=== PATIENT | male | born 1995 | race Caucasian/White ===

== ENCOUNTER 2024-08-22 19:45 | Emergency (ER) | payer OTHER, SELFPAY ==
--- NOTE | ~2024-08-22 | XR_ITS ---
HISTORY: felt pop in foot, SWELLING LATERAL FOOT COMPARISON: None TECHNIQUE: 3 views of the left foot were performed FINDINGS: No acute fracture or dislocation is appreciated. No significant degenerative disease is noted. The base of the fifth metatarsal is intact. No calcaneal spur is noted. Trace lateral soft tissue swelling of the midfoot is present. IMPRESSION: Midfoot soft tissue swelling, without acute fracture Reviewed, dictated and finalized at location A.
[2024-08-22 19:52] VITALS: BP 137/87; PULSE 93; RESP 16; TEMP 36.3; O2SAT 99
--- NOTE | 2024-08-22 20:01 | ED_ITS ---
HPI - Extremity Injury (Lower) General Chief Complaint: Extremity Injury, Lower Stated Complaint: Injured Ankle Time Seen by Provider: 08/22/24 20:00 Source: patient, RN notes reviewed and old records reviewed Mode of arrival: ambulatory Limitations: no limitations History of Present Illness HPI Narrative: 29 year old male who presents to [facility] care with complaints of twisting his left foot this evening and felt a pop. He states that he is concerned for possible fracture due to area of swelling noted on the lateral aspect of his foot in area where he felt a pop. Patient has full mobility of his foot and ank le, strong pedal pulse present, is able to walk on his foot. 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 EYES: Denies visual changes, redness, or discharge. ENT: Denies rhinorrhea, congestion, sore throat, or otalgia. CARDIOVASCULAR: Denies chest pain, palpitations, or edema. RESPIRATORY: Denies cough or dyspnea. GASTROINTESTINAL: Denies abdominal pain, nausea, vomiting, or diarrhea. GENITOURINARY: Denies dysuria or hematuria. SKIN: Denies rash or itching. MUSCULOSKELETAL: Denies back pain,positive for swelling and discomfort to the lateral aspect of his left foot where he felt a pop and noted swollen area. or myalgia. NEUROLOGIC: Denies headache, numbness, or weakness. PSYCHIATRIC: Positive for history anxiety or depression. All systems reviewed & are unremarkable except as noted in HPI and below PMFSH Past Medical History Medical History (Updated 08/22/24 @ 20:38 by Negrita Eller NP) Anxiety ADHD (attention deficit hyperactivity disorder) Comments At time of signature, agree with nursing past medical, surgical, social and family history. There is no relevant family history pertinent to the presenting complaint Exam Narrative: GENERAL: Well-appearing, well-nourished, and in no acute distress. HEAD: Normocephalic, atraumatic. EYES: PERRLA and EOMI. ENT: Nares clear, no rhinorrhea or epistaxis. Mucous membranes moist. NECK: Supple.no lymphadenopathy CHEST: Clear to auscultation. No respiratory distress.SAO2 99% on room air HEART: Regular rate and rhythm. No murmur heard. Normal peripheral pulses. ABDOMEN: Soft, nontender, nondistended, normal active bowel sounds. EXTREMITIES: Normal range of motion. Positive for lateral midfoot edema.after feeling of pop in left foot after twisting foot, Patient has full mobility of left foot and ankle strong pedal pulse with no tingling or numbness to foot, Patient able to tolerate full weight bearing to left foot. SKIN: Warm, dry, no rash. NEURO: No focal deficits. Alert and oriented x3. Course Course Emergency Course: Patient is aware of diagnosis, understands and agrees to treatment plan.? Anticipatory guidance given.? Patient agrees to follow-up as directed and is aware of reasons to seek care at the emergency department. Portions of this record may have been created with voice recognition software Level of Care: Express Care Visit Vital Signs Vital signs: Vital Signs Temperature 36.3 C L 08/22/24 19:52 Pulse Rate 93 08/22/24 19:52 Respiratory Rate 16 08/22/24 19:52 Blood Pressure 137/87 08/22/24 19:52 Pulse Oximetry 99 08/22/24 19:52 Temperature 36.3 C L 08/22/24 19:52 Pulse Rate 93 08/22/24 19:52 Respiratory Rate 16 08/22/24 19:52 Blood Pressure 137/87 08/22/24 19:52 Pulse Oximetry 99 08/22/24 19:52 Reviewed MDM - Extremity Injury (Lower) Differential Diagnosis Differential diagnosis: Likely other (pain and swelling left foot, sprain/strain left foot, swelling lateral aspect of left foot) Medical Records Attestation: I reviewed the patient's medical records. Imaging Data Attestation: I personally reviewed and interpreted this imaging study as follows: My impression: no fracture noted some soft tissue swelling of the lateral midfoot of left foot Radiologist's impression: [facility] [address] [place] [address] XRay Report Signed Patient: Jesus Martell : 1995 MR#: [id number] Age: 29 Acct:[id number] Loc: [facility] ADM Date: 08/22/24Attending Dr: Ordering Physician: Negrita Eller APRN Date of Service: 08/22/24 Procedure(s): XR foot LT min 3V Accession Number(s): [id number] cc: [facility] PHYSICIAN; Negrita Eller APRN~ HISTORY: felt pop in foot, SWELLING LATERAL FOOT COMPARISON: None TECHNIQUE: 3 views of the left foot were performed FINDINGS: No acute fracture or dislocation is appreciated. No significant degenerative disease is noted. The base of the fifth metatarsal is intact. No calcaneal spur is noted. Trace lateral soft tissue swelling of the midfoot is present. IMPRESSION: Midfoot soft tissue swelling, without acute fracture Reviewed, dictated and finalized at location A. Please be advised this is a medical document. It is intended for [id number] communication. It is written in medical language and may contain unfamiliar abbreviations or verbiage. Medical documents are intended to carry relevant information, facts as evident, and the clinical opinion of the practitioner at the time of the encounter. This report may have been done utilizing a voice recognition system. Attempts have been made to correct errors. However, there may be uncorrected grammatical, spelling, and recognition errors present. The file time of this note does not necessarily represent the time of service. Dictated By: Afsaneh Andersen MD 08/22/242020 Signed By: <Electronically signed by Afsaneh Andersen MD in OV> Critical Care Time Critical Care Time Critical Care Time: No Discharge Plan Discharge Clinical Impression: Sprain of foot, left Qualifiers: Encounter type: initial encounter Qualified Code(s): S93.602A - Unspecified sprain of left foot, initial encounter Patient Disposition: Home Condition: Stable Instructions: Antibiotic Form, Foot Sprain (ED) Additional Instructions: Elastic wrap or orthopedic splint as directed for comfort for the next 5-7 days Tylenol for lesser pain Ibuprofen regularly for the next 2-3 days for the inflammation Follow-up with orthopedic surgeon if continued pain or problems Follow-up with PCP if further problems or concerns Ice to the area 20-30 minutes 4-6 times a day Elevate above heart If your symptoms persist, change or worsen significantly before you can contact your personal physician then please, without delay, go to the emergency de partment for further evaluation. Follow-up with PCP in 7-10 days or sooner if needed Follow up with PCP soon in regards to your blood pressure which is elevated above threshold for referral. Blood pressure above 120/80 may indicate pre- hypertension. 137/ 87 Patient Language: [place] Prescriptions: No Action escitalopram oxalate 20 mg tablet lisdexamfetamine 20 mg capsule Follow-up/Referrals: PHYSICIAN,[facility] [Primary Care Provider] - Time of Disposition: 20:27 Quality [place] Coma Scale Eyes: Open Verbal: Oriented and Alert Motor: Follows Commands Christiano Coma Total Score: 15
== END 2024-08-22 20:31 | disposition home or self-care (01) ==
PROVIDERS: Emergency Provider Registered Nurse
DX: S93.602A Unspecified sprain of left foot, initial encounter (principal); X50.9XXA Other and unspecified overexertion or strenuous movements or postures, initial encounter
CPT/HCPCS: 73630; 99203; G0463